=== PATIENT | male | born 1975 | race Caucasian/White ===

== ENCOUNTER 2022-05-06 09:47 | Day surgery (SDC) | payer OTHER, SELFPAY ==
[2022-05-06] VITALS (12 sets, daily range): BP systolic 106–125; BP diastolic 64–82; PULSE 67–87; RESP 15–18; TEMP 36.6; O2SAT 97–100; BMI 22.4
[2022-05-06] MEDS: BUPIVACAINE 0.5% 30 ML 5 ML INJECTION (11:02)
[2022-05-06] MEDS: lidocaine HCL 2 % MULTIDOSE 20 ML VIAL 7 ML INJECTION (11:02)
--- NOTE | 2022-05-06 11:04 | P.ORPRC_ITS ---
Procedure Note Date of procedure: 05/06/22 Procedure: Preop diagnosis: Right hand middle finger infected dorsal laceration Postop diagnosis: Right hand middle finger infected dorsal laceration Procedure: Incision and drainage Anesthesia: Local Surgeon: Bradley Gonzalez MD assistant offset press operator: VALERIE Richey EBL: 0 mL Complications: None Specimens: None Drains: None Indications: The patient has a history of right hand middle finger laceration, 2 weeks ago. This subsequently became infected. He was given an IM dose of antibiotics and oral antibiotics. Despite this, the wound has been slow to respond. Since it is difficult to assess whether the laceration entered the PIP joint, we elected to explore the wound and wash it out. The risks, benefits alternatives and expected outcomes were discussed in detail. These included but were not limited to: Infection, bleeding, injury to blood vessel or nerve, venous thromboembolism. All questions were answered to their satisfaction. The patient was placed supine on the operating room table. Local anesthesia was established with a digital block using 0.5% Marcaine without epinephrine and 2% lidocaine without epinephrine. The hand was prepped and draped in usual sterile fashion. The finger was exsanguinated, the tourni-cot was placed to the base of the finger. The laceration was extended longitudinally over the ulnar aspect of the middle phalanx. It was extended proximally over the dorsum of the proximal phalanx. Subcutaneous dissection was taken with tenotomy scissors to the extensor mechanism. The fibrinous exudate deep in the wound was debrided with the rongeur. Gross purulence was not encountered. The extensor mechanism was not obviously violated. However, the ulnar aspect appeared thinned out and attenuated. To be sure that the infection did not enter the PIP joint, we elected to open the joint. Therefore, the extensor mechanism was longitudinally divided over the ulnar side of the PIP joint. The joint was inspected and was found to be hyperemic but no gross purulence. The joint was irrigated with nor mal saline. We repaired the extensor mechanism with interrupted [id number] 4-0 Vicryl sutures. The epidermis on both sides of the laceration was not viable and was debrided with the tenotomy scissors. Again, the wound was irrigated with normal saline. We then repaired the skin with interrupted 4-0 nylon sutures. The tourni-cot was cut off. A dry dressing was applied. Sponge and needle counts were correct x 2. The patient tolerated the procedure well, there were no apparent complications. They were sent to same day surgery in satisfactory condition. Plan: Light use of the hand as tolerates. We will have him avoid making a full, composite fist for 3 weeks postoperatively. He can work on full active extension without restriction. He will discontinue the intraoperative dressing on postoperative day 3 and may get the wound wet as tolerates. Follow up in the office in 2 weeks for a wound check and suture removal.
== END 2022-05-06 11:31 | disposition home or self-care (01) ==
PROVIDERS: PCP Family Medicine; Visit Provider Orthopaedic Surgery
PROC: 0HQQXZZ Repair Finger Nail, External Approach (ICD-10-PCS; CPT 11760; principal; 2022-05-06 13:00)
DX: S61.212A Laceration without foreign body of right middle finger without damage to nail, initial encounter (principal); L08.9 Local infection of the skin and subcutaneous tissue, unspecified
CPT/HCPCS: 26080; J3490

== ENCOUNTER 2024-10-14 07:48 | Outpatient (CLI) | payer BC, SELFPAY ==
--- NOTE | 2024-10-14 08:51 | P.ANES_ITS ---
Anesthesia Charges Start Date/Time Anesthesia Start Date: 10/14/24 Anesthesia Start Time: 08:30 Stop Date/Time Anesthesia Stop Date: 10/14/24 Anesthesia Stop Time: 08:50 Coding CPT Codes CPT Codes: BEATRIS LWR INTST SCR COLSC - 66426 ([id number]) P1 - NORMAL HEALTHY PATIENT, QK - ABORIGINAL COMMUNITY COUNCIL MEMBER 2-4 CNCRNT ANES PROC, QX - LOGISTICS SOLUTION MANAGER SVC W/ MED DIRECTION
--- NOTE | 2024-10-14 08:51 | W.ANESCHARGE ---
Anesthesia Charges Start Date/Time Anesthesia Start Date: 10/14/24 Anesthesia Start Time: 08:30 Stop Date/Time Anesthesia Stop Date: 10/14/24 Anesthesia Stop Time: 08:50 Coding CPT Codes CPT Codes: BEATRIS LWR INTST SCR COLSC - 60915 ([id number]) P1 - NORMAL HEALTHY PATIENT, QK - METAL CEILING HANGER 2-4 CNCRNT ANES PROC, QX - HOME CARE AIDE SVC W/ MED DIRECTION
--- NOTE | 2024-10-14 09:23 | P.ANES_ITS ---
Anesthesia Charges Start Date/Time Anesthesia Start Date: 10/14/24 Anesthesia Start Time: 08:30 Stop Date/Time Anesthesia Stop Date: 10/14/24 Anesthesia Stop Time: 08:50 Coding CPT Codes CPT Codes: BEATRIS LWR INTST SCR COLSC - 60079 ([id number]) P1 - NORMAL HEALTHY PATIENT, QK - MANAGER CENTER 2-4 CNCRNT ANES PROC, QX - SANDSTONE SPLITTER SVC W/ MED DIRECTION
--- NOTE | 2024-10-14 09:23 | W.ANESCHARGE ---
Anesthesia Charges Start Date/Time Anesthesia Start Date: 10/14/24 Anesthesia Start Time: 08:30 Stop Date/Time Anesthesia Stop Date: 10/14/24 Anesthesia Stop Time: 08:50 Coding CPT Codes CPT Codes: BEATRIS LWR INTST SCR COLSC - 55277 ([id number]) P1 - NORMAL HEALTHY PATIENT, QK - FURNITURE DUSTER 2-4 CNCRNT ANES PROC, QX - ORTHOPEDIC TECHNICIAN SVC W/ MED DIRECTION
--- OUTSIDE RECORDS SUMMARY | 2024-10-15 00:20 | XMS_ITS | Clinical Summary ---
Author Organization [facility] Address [address] [place] [address] Care Team Providers Care Telephone Lineman Name Role Phone Ranjith Mendoza DO Primary Care Provider [phone] Allergies No known active allergies Medications multivitamin (MVI) tabletIndication s:Routine general medical examination at a health care facility Take 1 tablet by mouth once daily. 0 3 Active cholecalciferol (Vitamin D-3) 2,000 unit capsuleIndicatio ns:Vitamin D deficiency Take 1 Capsule (2,000 units) by mouth once daily. 0 2 Active busPIRone (BUSPAR) 5 mg tabletIndication s:CHUN (generalized anxiety disorder) Take 1 Tablet (5 mg) by mouth three times daily. 270 Tablet 3 5 Active polyethylene glycol-electroly te 236-22.74-6.74 -5.86 gram suspensionIndica tions:Encounter for screening colonoscopy Drink 2 liters (half the bottle) the day before colonoscopy and 2 liters (remaining prep) 6 hours prior to colonoscopy appointment. 4000 mL 5 Active Active Problems Problem Noted Date Diagnosed Date Vitamin D deficiency 01/14/2012 CHUN (generalized anxiety disorder) 02/02/2007 Encounters Date Type Department Care Team Description 10/14/2024 7:45 AM CDT Office Visit [facility] [address] [place] [phone] Mikey Monae MD Arrived 10/14/2024 Orders Only [facility] Scanner 1 scan: (1-Ord) INCOMING RECORDS-COLONOSCOPY, [facility], 10/14/2024 10/14/2024 Orders Only [facility] Scanner 1 scan: (1-Ord) INCOMING RECORDS-COLONOSCOPY, [facility], 10/14/2024 10/14/2024 Orders Only [facility] Scanner 1 scan: (1-Ord) INCOMING RECORDS-COLONOSCOPY, [facility], 10/14/2024 10/14/2024 Orders Only [facility] Scanner 1 scan: (1-Ord) INCOMING RECORDS-COLONOSCOPY, [facility], 10/14/2024 10/14/2024 Travel 09/30/2024 Orders Only [facility] Scanner 1 scan: (1-Ord) [facility] L5 NERVE ROOT INJ., 09/30/2024 08/12/2024 12:10 PM CDT E-Visit [facility] [address] [place] [address] Belkis Gomez PA eVisit for Back Pain 08/03/2024 Telephone [facility] [address] [place] [address] Mikey Monae MD Screening from Last 3 Months Immunizations Immunization Administration Dates Next Due COVID-19 VACCINE SPIKEVAX (M ODERNA 50MCG/0.5ML) 12YO+ PFS 05/21/2023 COVID-19 vaccine (Pfizer-Bio NTech 30mcg/0.3mL) MD FUNMILAYOV 03/19/2021,08/17/2020 DTaP 05/12/1978 Influenza, IIV3 (Age 6-35 mos) 05/04/2012 Influenza, IIV3 (Age >=3 years) 02/02/2010,03/30 Influenza, IIV4 05/21/2023,,03/19/2021,2019,01/05/2019,01/24/2016 Polio Virus, Unspecified 05/12/1978 Td (Age >=7 Years) 01/05/2019,08/11/1991 Tdap 06/21/2008 Family History Medical History Relation Name Comments Good Health Brother x3 Cancer-prostate Father 69 yo Heart Disease Father stents at 63 y o b 1939 [facility] Mother b 1941 [facility] Sister x2 Relation Name Status Comments Brother Father Mother Sister Social History Tobacco Use Types Packs/Day Years Used Date Smoking Tobacco: Never Smokeless Tobacco: Never Tobacco Cessation:Counseling Given: Yes Alcohol Use Standard Drinks/Week Comments Yes 3.3 (1 standard drink = 0.6 oz p ure alcohol) PHQ-2 Answer Date Recorded PHQ-2 TOTAL SCORE 0 06/23/2024 Social Connections Answer Date Recorded Do you often feel lonely or isolated from those around you? 0 06/19/2024 Financial Resource Strain Answer Date R ecorded Difficulty of Paying Living Expenses 3 06/19/2024 Difficulty of Paying Living Expenses Not on file 06/19/2024 Food Insecurity Answer Date Recorded Do you worry your food will run out before you are able to buy more? 1 06/19/2024 Transportation Needs Answer Date Record ed Does lack of transportation keep you from medica l appointments? 1 06/19/2024 Does lack of transportation keep you from work, meetings or getting things that you need? 1 06/19/2024 Housing Stability Answer Date Recorded What is your housing situation today? 1 06/19/2024 Utilities Answer Date Recorded Do you have trouble paying f or utilities (for example, heat, electricity, water, phone)? 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 Not on file Not on file Not on file Obstetrics History Last Filed Vital Signs Vital Sign Reading Time Taken Comments Blood Pressure 117/78 06/23/2024 7:21 AM ADJUNCT LECTURER Pulse 70 06/23/2024 7:21 AM ADJUNCT LECTURER Temperature 36.8 C (98.3 F) 09/25/2015 10:16 AM CDT Respiratory Rate - - Oxygen Saturation 98% 06/23/2024 7:21 AM ADJUNCT LECTURER Inhaled Oxygen Concentration - - Weight 82.5 kg (181 lb 12.8 oz) 06/23/2024 7:21 AM ADJUNCT LECTURER Height 180.3 cm (5' 11) 06/23/2024 7:21 AM ADJUNCT LECTURER Body Mass Index 25.36 06/23/2024 7:21 AM ADJUNCT LECTURER Plan of Treatment Health Maintenance Due Date Last Done Comments Hepatitis B series for 19+ ( 1 of 3 - 19+ 3-dose series) 1992 Pneumococcal series for age 50+ (1 of 1 - PCV) 2023 Zoster (shingles) series for age 50+ (1 of 2) 2023 COVID-19 vaccine series ( season) 2023 05/21/2023, 03/19/2021, 08/17/2020, Additional history exists Influenza Vaccine (Season Ended) 2024 05/21/2023, 03/25/2022, 03/19/2021, Additional history exists BMI (ht and wt on same day) for age 18+ 06/23/2025 06/23/2024, 05/21/2023, 03/25/2022, Additional history exists Depression screening for age 12+ 06/23/2025 06/23/2024, 05/21/2023, 03/25/2022, Additional history exists Tetanus booster 01/05/2029 01/05/2019, 03/0 07/2008, 08/11/1991 Lipids for age 45-75 06/23/2029 06/23/2024, 05/21/2023, 03/25/2022, Additional history exists Colonoscopy through age 75 10/14/203410/14, 10/14/2024, 10/14/2024, Additional history exists Tdap Completed 06/21/2008 Hepatitis C screening for ag e 18-79 Completed 03/25/2022 HIV for age 15-65 Completed 05/21/2023 Procedures Procedure Name Priority Date/Time Associated Diagnosis Comments COLONOSCOPY SCREENING Routine 10/14/2024 6:50 AM CDT Screening for colon cancer SCAN-COLONOSCOPY 10/14/2024 12:0 0 AM CDT SCAN-COLONOSCOPY 10/14/2024 12:0 0 AM CDT SCAN-COLONOSCOPY 10/14/2024 12:0 0 AM CDT SCAN-COLONOSCOPY 10/14/2024 12:0 0 AM CDT SCAN-OPERATIVE/PROC EDURE REPORT 09/30/2024 12:00 AM CDT LIPID PANEL W REFLEX MEASURED LDL Routine 06/23/2024 7:43 AM ADJUNCT LECTURER Annual physical exam ANTI HIV 1/2 Routine 05/21/2023 8:03 AM ADJUNCT LECTURER Screening for HIV (human immunodeficiency virus) ANTI HCV Routine 03/25/2022 8:41 AM ADJUNCT LECTURER Need for hepatitis C screening test from Last 3 Months or Most Recently Relevant to Health Maintenance Results * SCAN-COLONOSCOPY (10/14/2024 12:00 AM CDT) us Scanner OTHER Final Result * SCAN-COLONOSCOPY (10/14/2024 12:00 AM CDT) us Scanner OTHER Final Result * SCAN-COLONOSCOPY (10/14/2024 12:00 AM CDT) us Scanner OTHER Final Result * SCAN-COLONOSCOPY (10/14/2024 12:00 AM CDT) us Scanner OTHER Final Result * SCAN-OPERATIVE/PROCEDURE REPORT (09/30/2024 12:00 AM CDT) us Scanner OTHER Final Result * (ABNORMAL) LIPID PANEL W REFLEX MEASURED LDL (06/23/2024 7:43 AM ADJUNCT LECTURER) CHOLESTEROL, TOTAL 205(H) <200 mg/dL [facility] HDL CHOLESTEROL 56 > OR = 40 mg/dL [facility] TRIGLYCERIDES 53 <150 mg/dL [facility] LDL-CHOLESTEROL 135(H) mg/dL (calc) [facility] Comment: Reference range: <100 Desirable range <100 mg/dL for primary prevention; <70 mg/dL for patients with CHD or diabetic patients with > or = 2 CHD risk factors. LDL-C is now calculated using the Maria Isabel calculation, which is a validated novel method providing better accuracy than the Friedewald equation in the estimation of LDL-C. Mikey JAMA et al. TRANG. 2013;310(19): 4520-3311 (http://education.SeeSaw.com/faq/JOL895) CHOL/HDLC RATIO 3.7 <5.0 (calc) [facility] NON HDL CHOLESTEROL 149(H) <130 mg/dL (calc) [facility] Comment: For patients with diabetes plus 1 major ASCVD risk factor, treating to a non-HDL-C goal of <100 mg/dL (LDL-C of <70 mg/dL) is considered a therapeutic option. Blood BLOOD SPECIMEN / Unknown 06/23/2024 7:43 AM ADJUNCT LECTURER 06/23/2024 7:44 AM ADJUNCT LECTURER Adei VOYAAjared DO CHEMISTRY Final Result Performing Organization Address City/[facility]/ZIP Co de Phone Number [employer] [place] [id number] [place] [address], [facility] [place] [address] [place] [phone] * ANTI HIV 1/2 [95565.0] (05/21/2023 8:03 AM ADJUNCT LECTURER) HIV-1/HIV-2 SCREEN Non-Reacti ve Non-Reacti ve 05/21/2023 6:19 PM ADJUNCT LECTURER [facility] [employer] [facility] Comment:HIV-1 p24 and HIV-1/ HIV-2 Ab Not Detected. Blood BLOOD SPECIMEN / Unknown Venipuncture / Unknown 05/21/2023 8:03 AM ADJUNCT LECTURER 05/21/2023 8:05 AM ADJUNCT LECTURER [facility] DO SEND OUTS Final Result [facility] [employer] [facility] [address] [place] [address], * ANTI HCV (03/25/2022 8:41 AM ADJUNCT LECTURER) HEPATITIS C ANTIBODY Non-React eliazar Non-React eliazar 03/27/2022 3:09 PM ADJUNCT LECTURER [facility] Comment:Antibodies to HCV no t detected; does not exclude the possibility of exposure to HCV. Blood BLOOD SPECIMEN / Unknown Venipuncture / Unknown 03/25/2022 8:41 AM ADJUNCT LECTURER 03/25/2022 8:42 AM ADJUNCT LECTURER us Jimmy Cardozo MD SEND OUTS Final Re sult [facility] [address] [place] [address], from Last 3 Months or Most Recently Relevant to Health Maintenance Insurance [facility] [employer] Care Teams Telephone Lineman Relationship Specialty Start Date End Date Ranjith Mendoza DO [address] [place] [address] PCP - General Family Practice 02/03/24
== END 2024-10-14 07:49 | disposition home or self-care (01) ==
LOC: OP CLINIC 07:51
PROVIDERS: PCP Student in an Organized Health Care Education/Training Program; Visit Provider Internal Medicine Gastroenterology
DX: Z12.11 Encounter for screening for malignant neoplasm of colon (principal); K57.30 Diverticulosis of large intestine without perforation or abscess without bleeding
CPT/HCPCS: 00812; 45378; J2704